=== PATIENT | male | born 1990 | race Two or more races ===

== ENCOUNTER 2017-04-19 18:36 | Emergency (ER) | payer SELFPAY ==
[~2017-04-19] VITALS: Ht 180.3 cm; Wt 72.6 kg
[2017-04-19 18:50] VITALS: BP 131/80
--- NOTE | 2017-04-19 19:13 | PHYS DOC ---
Adult General Chief Complaint Chief Complaint: OTHER COMPLAINTS HPI HPI Patient is a 26 year old male presents to the emergency department with complaints of a foreign body in the right ankle. He is Citizen Of [place]-speaking but declines use of an motor vehicle parts interpreter as he states his can interpret. 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 He's been a bit her on the extremity since incident. Here now seeking further evaluation. Review of Systems Review of Systems Musculoskeletal: Right ankle pain Current Medications Current Medications Current Medications Medications (Trade) Dose Ordered Sig/[place] Start Time Stop Time Status Last Admin Dose Admin Lidocaine HCl (Xylocaine-Mpf 1% Vial) 2 ml 1X ONCE 04/19/17 19:30 04/19/17 19:31 DC 04/19/17 19:33 2 ML Allergies Allergies Allergies Coded Allergies Type Severity Reaction Last Updated Verified No Known Drug Allergies 04/19/17 No Physical Exam Physical Exam Constitutional: Well developed, well nourished, no acute distress, non-toxic appearance. [] Cardiovascular:Heart rate regular rhythm, no murmur [] Lungs & Thorax: Bilateral breath sounds clear to auscultation [] Extremities: Right ankle, foreign body, medial aspect. Neurovascular intact distally. Proximal to the arm body, the Right tib-fib and Right knee exam unremarkable. Neurologic: Alert and oriented X 3, normal motor function, normal sensory function, no focal deficits noted. [] Current Patient Data Vital Signs Vital Signs Date Time Temp Pulse Resp B/P (MAP) Pulse Ox O2 Delivery O2 Flow Rate FiO2 04/19/17 18:50 98.0 77 20 131/80 (97) 96 Room Air 98.0 EKG EKG [] Radiology/Procedures Radiology/Procedures X-ray reviewed, foreign body in soft tissue. This film was reviewed by Dr. Alexandre Jeffries emergency room physician. Procedure: Area anesthetized with 1% lidocaine, 2 [place]. Cleansed with Betadine normal saline. Pliers were used to remove the nail from the soft tissue in the right ankle. area irrigated with betadine and NS. Dressing applied. Patient tolerated well. Post foreign body x-ray: No bony trauma no bony injury. No foreign bodies noted soft tissue. [] Course & Med Decision Making Course & Med Decision Making Pertinent Labs and Imaging studies reviewed. (See chart for details) [] Dragon Disclaimer Dragon Disclaimer This electronic medical record was generated, in whole or in part, using a voice recognition dictation system. Departure Departure Impression: Primary Impression: Foreign body of ankle Disposition: 01 HOME, SELF-CARE Condition: STABLE Patient Instructions: Ear Foreign Body Scripts Tramadol Hcl (TRAMADOL HCL) 50 Mg Tablet 1 TAB PO PRN Q6HRS Y for PAIN, #15 TAB Prov: ROSAURA HAWKINS APRN 04/19/17 Cephalexin (KEFLEX) 500 Mg Capsule 1 CAP PO TID, #21 CAP Prov: ROSAURA HAWKINS APRN 04/19/17 Problem Qualifiers Primary Impression: Foreign body of ankle Encounter type: initial encounter Laterality: right Qualified Codes: S90.551A - Superficial foreign body, right ankle, initial encounter ROSAURA HAWKINS APRN Apr 19, 2017 19:13
[2017-04-19] MEDS ORDERED: LIDOCAINE 1% PF 2 ML VIAL. INJ ONE (19:30)
[2017-04-19] MEDS ORDERED: CEPH-264 PO (20:09)
[2017-04-19] MEDS ORDERED: TRAM50TA PO (20:10)
--- NOTE | 2017-04-20 07:53 | RAD ---
Right ankle radiograph 04/19/2017 at 1953 hours Indication: Post foreign body removal of the right ankle. Comparison: None available Technique: 3 views of the right ankle are provided. Findings: There is no acute fracture or dislocation. Tibial plafond and talar dome are intact. Ankle mortise is congruent. No radiopaque foreign density is present. No joint space narrowing. Wrapping limits evaluation the soft tissues.. No osseous erosion or soft tissue gas. Bone mineralization is within normal limits. Impression: No acute fracture or dislocation. No radiopaque foreign density identified.
--- NOTE | 2017-04-20 08:12 | RAD ---
Right ankle radiograph 04/19/2017 at 1849 hours Indication: Patient had yamileth nail stuck in ankle Comparison: None available Technique: 3 views the right ankle are provided. Findings: There is a noncannulated screw traversing the medial malleolus extending from the outer cortex through the medullary space and extends to the ankle mortise on the AP view. On the lateral view, the distal tip appears to be within the medial malleolus. There is associated soft tissue swelling. Normal osseous mineralization. Small plantar calcaneal enthesophyte is present. Impression: Screw is identified traversing the medial malleolus with the distal tip extending into the ankle mortise on at least one view.
== END 2017-04-19 20:15 | disposition home or self-care (01) ==
LOC: ER 18:36
DX: S90.551A Superficial foreign body, right ankle, initial encounter (principal); W29.4XXA Contact with nail gun, initial encounter; Y93.89 Activity, other specified; Y99.8 Other external cause status; Y92.89 Other specified places as the place of occurrence of the external cause
CPT/HCPCS: 10120; 73610; 99285-25